=== PATIENT | male | born 1995 | race Two or more races ===

== ENCOUNTER 2020-12-17 12:53 | Emergency (ER) | payer OTHER ==
[~2020-12-17] VITALS: Ht 162.6 cm; Wt 54.0 kg
--- NOTE | 2020-12-17 13:02 | NUR ---
DR COLEMAN AT BEDSIDE FOR EVAL. +
[2020-12-17] MEDS ORDERED: LIDOCAINE VISCOUS 2% UD 15 ML UDC ONE (13:05)
[2020-12-17] MEDS ORDERED: MAG HYDROX/AL HYDROX/SIMETH 30 ML UDC ONE (13:05)
[2020-12-17] MEDS ORDERED: FAMOTIDINE/PF INJ 20 MG/2 ML VIAL IV ONE ×2 (13:06→13:30)
[2020-12-17] MEDS ORDERED: ONDANSETRON HCL/PF 4 MG/2 ML VIAL ONE (13:06)
--- NOTE | 2020-12-17 13:15 | NUR ---
RADIOLOGY AT BEDSIDE FOR CHEST XRAY.
[2020-12-17] MEDS ORDERED: FAMO-131 PO (13:24)
[2020-12-17] MEDS ORDERED: ONDA4TAB5 PO (13:24)
[2020-12-17] MEDS ORDERED: LIDOCAINE VISCOUS 2% UD 15 ML UDC MM ONE (13:30)
[2020-12-17] MEDS ORDERED: MAG HYDROX/AL HYDROX/SIMETH 30 ML UDC PO ONE (13:30)
[2020-12-17] MEDS ORDERED: ONDANSETRON HCL/PF 4 MG/2 ML VIAL IVP ONE (13:30)
[2020-12-17] MEDS ORDERED: IV NS 0.9% 1,000 ML BAG IV ONE (13:30)
[2020-12-17] MEDS ORDERED: LORAZEPAM 1 MG TABLET PO ONE (14:00)
[2020-12-17] MEDS ORDERED: DICYCLOMINE HCL INJ 20 MG/2 ML AMPUL IM ONE ×2 (14:00→14:02)
[2020-12-17] MEDS ORDERED: LORAZEPAM 0.5 MG TABLET ONE (14:03)
[2020-12-17 14:38] VITALS: BP 105/88
--- NOTE | 2020-12-17 14:38 | NUR ---
Patient discharged to home in stable condition. Written and verbal after care instructions given. Patient verbalizes understanding of instruction.IV removed. Catheter intact and site benign. Pressure and 4x4 applied to site. No bleeding noted.
== END 2020-12-17 14:39 | disposition home or self-care (01) ==
LOC: ER 12:58
DX: R10.13 Epigastric pain (principal); R11.2 Nausea with vomiting, unspecified; J45.909 Unspecified asthma, uncomplicated
CPT/HCPCS: 71045; 96361; 96372; 96374; 96375; 99284; J0500; J2405; J3490; J7030